=== PATIENT | female | born 1950 | race Caucasian/White ===

== ENCOUNTER 2018-12-06 10:02 | Inpatient (IN) ==
[2018-11-29 09:58] LABS: HEMATOCRIT 37.4 % (37.0-47.0); MCH 28.6 PG (27-31); MCHC 32.1 g/dL (33-37); MCV 89.3 FL (81-99); MPV 9.5 FL (7.4-10.4); RBC 4.19 XMIL (4.2-5.4); WBC 9.25 X1000 (4.8-10.8)
[2018-11-29 10:21] LABS: AGAP 8; BUN 12 mg/dL (8-22); CALCIUM 8.9 mg/dL (8.8-10.2); CHLORIDE 102 mmol/L (98-107); COSMO 280; CREATININE 0.9 mg/dL (0.5-0.9); ESTIMATED GFR > 60; GLUCOSE 142 mg/dL (70-104); POTASSIUM 4.1 mmol/L (3.5-5.1); SODIUM 139 mmol/L (136-145); TCO2 29 mmol/L (25-35)
[2018-12-06] MEDS ORDERED: LR 1,000 ML ONE ×2 (10:41→10:53)
[2018-12-06] MEDS ORDERED: MEFOXIN 2 GM/NS 2 GM/50 ML IVPB ONE (10:41)
[2018-12-06] MEDS ORDERED: VERSED ONE (10:45)
[2018-12-06] MEDS ORDERED: DIPRIVAN 1% ONE (10:45)
[2018-12-06] MEDS ORDERED: QUELICIN (DOSE) ONE (10:45)
[2018-12-06] MEDS ORDERED: ROBINUL ONE ×2 (10:45→12:03)
[2018-12-06] MEDS ORDERED: FENTANYL ONE ×2 (10:45→12:32)
[2018-12-06] MEDS ORDERED: XYLOCAINE-MPF 2% ONE (10:45)
[2018-12-06] MEDS ORDERED: MARCAINE 0.25% PF/EPI 1:200,000 ONE (10:53)
[2018-12-06] MEDS ORDERED: SODIUM CHLORIDE 0.9% ONE (10:53)
[2018-12-06] MEDS ORDERED: ZOFRAN ONE (12:03)
[2018-12-06] MEDS ORDERED: DECADRON ONE (12:03)
[2018-12-06] MEDS ORDERED: NEOSTIGMINE ONE (12:03)
[2018-12-06] MEDS ORDERED: ZEMURON ONE (12:03)
[2018-12-06] MEDS ORDERED: OFIRMEV 1000 MG/ISOTONIC SOLN 1,000 MG/100 ML BOTTLE ONE (13:30)
[2018-12-06] MEDS: DILAUDID ONE ×4 (14:15→18:04)
[2018-12-06 14:24] LABS: URINE SOURCE CATH
[2018-12-06 14:25] LABS: BILIRUBIN URINE NEGATIVE (NEGATIVE); BLOOD URINE NEGATIVE (NEGATIVE); COLOR STRAW; GLUCOSE URINE NEGATIVE (NEGATIVE); KETONE URINE NEGATIVE (NEGATIVE); LEUKOCYTES URINE NEGATIVE (NEGATIVE); NITRITE URINE NEGATIVE (NEGATIVE); PROTEIN URINE NEGATIVE (NEGATIVE); TURBIDITY URINE CLEAR (CLEAR); UROBILINOGEN URINE NORMAL (NORMAL)
[2018-12-06 14:27] LABS: UR EPITHELIAL CELLS <10 /HPF (<10); URINE BACTERIA NEGATIVE /HPF; URINE RBC <10 /HPF (<10); URINE WBC <10 /HPF (<10)
--- NOTE | 2018-12-06 14:44 | EKG Report ---
Test Performed on : 12/06/2018 2:24:54 PM Test Reason : EKG changes Blood Pressure : / mmHG Vent. Rate : 057 BPM Atrial Rate : 057 BPM P-R Int : 186 ms QRS Dur : 102 ms QT Int : 470 ms P-R-T Axes : 036 -34 005 degrees QTc Int : 457 ms Sinus bradycardia. Left axis deviation Minimal voltage criteria for LVH, may be normal variant Nonspecific ST and T wave abnormality Abnormal ECG When compared with ECG of 10-NOV-2018 05:11, (Unconfirmed) T wave amplitude has decreased in Inferior leads T wave inversion less evident in Lateral leads Confirmed by Shabbir Downey MD ([id number]) on 12/06/2018 5:03:47 PM
[2018-12-06] MEDS: APRESOLINE ONE ×3 (15:00→17:43)
[2018-12-06] MEDS ORDERED: TYLENOL PO PRN (15:02)
[2018-12-06] MEDS ORDERED: ZOFRAN IV PRN (15:02)
[2018-12-06] MEDS ORDERED: APRESOLINE IV PRN (15:13)
[2018-12-06] MEDS ORDERED: NS 1,000 ML ONE (15:15)
--- NOTE | 2018-12-06 15:46 | OPERATIVE NOTE ---
PROCEDURE DATE : 12/06/2018 PREOPERATIVE DIAGNOSIS: Cholelithiasis. POSTOPERATIVE DIAGNOSIS: Suppurative cholecystitis. PROCEDURE: Laparoscopic converted to open cholecystectomy. SURGEON: Matteo Galaviz MD. BONDING MACHINE OPERATOR: Vinnie Lewis MD. Dr. Lewis assisted with the entirety of the case. His presence was crucial for completion of the case. ANESTHESIA: General endotracheal. INTRAOPERATIVE FINDINGS: Purulence in the gallbladder. COMPLICATIONS: None at the time of this dictation. ESTIMATED BLOOD LOSS: 450 mL. SPECIMENS REMOVED: Gallbladder and culture from the gallbladder. DRAINS: 19 [place]. BRIEF HISTORY: A 68-year-old female presenting with right upper quadrant pain. Imaging suggested cholelithiasis but no cholecystitis. [place] she would benefit from cholecystectomy. The risks, benefits, and alternatives were discussed and documented in the chart. All questions answered. DESCRIPTION OF PROCEDURE: After informed consent was obtained, the patient was brought to the operative theater, transferred to the operating table in supine position. General endotracheal anesthesia was then performed without complication. A formal time-out was then performed confirming patient, date, procedure. All were in agreement. At that time, attention was given to the abdomen. An infraumbilical incision was made through which using Optiview technique, we inserted a 12 mm trocar connected insufflation. Pneumoperitoneum was achieved. Under direct visualization, we placed 1 more additional trocar in the subxiphoid region. We quickly realized that the anatomy was very difficulty, inflamed, and I could not quickly or easily identify the anatomy safely laparoscopically, therefore, made a right upper quadrant incision with a scalpel converting it to open, carried down through the fascia into the muscle. We entered into the abdomen this way. Found dense adhesions of connective tissues around the gallbladder. With a combination of electrocautery and blunt dissection, I was able to free up the gallbladder from the transverse colon. To facilitate to exposure, I aspirated the gallbladder. There was purulence, which we sent for culture. Using a combination of electrocautery and blunt dissection, we made a plane off the gallbladder fossa and did a top-down approach. It was very difficult to get this plane and we did into the liver in several spots but we stopped bleeding with electrocautery. We dissected all the way down very carefully and very meticulously using a combination of finger dissection and blunt dissection and electrocautery all the way down to what looked like the infundibulum. We did pull out a large stone from the gallbladder. Once we were able to get down to infundibulum, we dissected off Calot's node and dissected it free. At this point, it was very difficult to identify the cystic duct clearly, so I elected to go up on the infundibulum and used a TIA stapler with a thick load across it, fired across it with good results and then removed the gallbladder. We then saw what looked like the remnant of the cystic duct and placed several additional clips on it. We then irrigated out the abdomen copiously until the suctioned fluid was clear. We then tunneled a drain from the lateral aspect of the incision to the gallbladder fossa secured in place. We then closed the fascia in 2 layers starting from either end with good approximation. We then irrigated out the incisions and closed all skin incisions with ramos. The patient tolerated the procedure well. She did have some EKG changes so we elected to put her in the CICU and watch her and get the Hospitalist to see her. An EKG is pending. cc: Matteo Galaviz MD
[2018-12-06] MEDS ORDERED: MORPHINE IV PRN (16:00)
--- NOTE | 2018-12-06 16:19 | CARDIOLOGY CONSULTATION ---
DATE: 12/06/2018 HISTORY OF PRESENT ILLNESS: Postop patient had accelerated hypertension and bradycardia. She was given 5 mg hydralazine postoperatively. Patient is in the CICU. She does not complain of any chest pain. She complains of discomfort in her abdomen following her recent just completed surgery. Patient was admitted for suppurative cholecystitis and underwent cholecystectomy. The patient's son was present. Patient is not on any home medications. She was told to have had diet-controlled diabetes, history of hypertension which has been under control. She is not taking any medications. No previous cardiac history. REVIEW OF SYSTEMS: A 14 point review of system was done.Cardiovascular System: Patient does not complain of any chest pain nor palpitations. Genitourinary System: There is no dysuria or hematuria. Respiratory System: No history of cough, expectoration, hemoptysis. No history of fevers or chills. PHYSICAL EXAMINATION: Vital Signs: Blood pressure at the time of my examination was 146/80, heart rate was 78. Cardiovascular System: First and second heart sounds were heard. There was a systolic murmur. Respiratory System: Normal air entry. There is no crepitations or rhonchi. Abdomen: The patient underwent a cholecystectomy. Extremities: Examination of extremities reveals no pedal edema. HEENT: Atraumatic, normocephalic. Pupils reacting to light. DIAGNOSTIC STUDIES: Electrocardiogram revealed normal sinus rhythm. There was no ST-T changes to suggest ischemia. ASSESSMENT: Ms. Angelica Licona is a 68-year-old lady who has a history of having had diabetes, currently diet-controlled, history of hypertension in the past, not on any medications, but her blood pressures have been stable, was noted to have elevated blood pressures postoperatively and bradycardia. Currently she is stable. PLAN: 1. She is NPO. We will give her hydralazine 10 mg IV q.6 p.r.n. should her blood pressure be greater than 160. 2. Given her soft systolic murmur, we will get an echocardiogram to assess cardiac and valvular function. We can transition her to p.o. medications for hypertension should her blood pressure be elevated. Thank you for the consult. We will follow the hospital course. cc: MD Matteo Thomson MD
--- NOTE | 2018-12-06 16:44 | Diag Imaging Result Doc PS360 ---
EXAM: CHEST-PORTABLE 12/06/2018 HISTORY: dyspnea TECHNIQUE: AP upright portable at 1633 COMMENT: There is platelike opacity in the right middle lobe and left lower lobe. There are no previous studies. The heart size is at the upper limits of normal. IMPRESSION: Right middle lobe and left lower lobe subsegmental atelectasis. Electronically signed by Jacobo Fernández 12/06/2018 4:41 PM
[2018-12-06 16:55] LABS: BASO# 0.02 X1000 (0.0-0.2); BASO% 0.1 % (0.0-0.8); EOS# 0.03 X1000 (0.0-0.7); EOS% 0.2 % (0.0-10.0); HEMATOCRIT 36.3 % (37.0-47.0); HEMOGLOBIN 11.6 g/dL (12.0-16.0); IMM GRAN# 0.04 X1000 (0.0-0.04); IMM GRAN% 0.2 % (0.0-0.5); LYMPH# 0.99 X1000 (1.2-3.4); LYMPH% 6.2 % (20.5-51.1); MCH 27.9 PG (27-31); MCV 87.3 FL (81-99); MONO# 0.12 X1000 (0.11-0.59); MONO% 0.7 % (1.7-9.3); NEUT# 14.81 X1000 (1.4-6.5); NEUT% 92.6 % (42.2-75.2); PLT 274 X1000 (130-400); RBC 4.16 XMIL (4.2-5.4); RDW 13.9 % (11.5-14.5); WBC 16.01 X1000 (4.8-10.8)
[2018-12-06 17:20] LABS: AGAP 12; ALB/GLOB RATIO 1.1; ALBUMIN 3.7 g/dL (3.5-5.0); ALKALINE PHOSPHATASE 91 U/L (32-104); BUN 9 mg/dL (8-22); CALCIUM 8.5 mg/dL (8.8-10.2); CHLORIDE 101 mmol/L (98-107); COSMO 280; CREATININE 0.8 mg/dL (0.5-0.9); ESTIMATED GFR > 60; GLUCOSE 203 mg/dL (70-104); GOT 65 U/L (10-30); GPT 33 U/L (10-36); POTASSIUM 3.7 mmol/L (3.5-5.1); SODIUM 138 mmol/L (136-145); TCO2 25 mmol/L (25-35); TOTAL BILIRUBIN 0.71 mg/dL (0.20-1.00); TOTAL PROTEIN 7.1 g/dL (6.3-8.3)
[2018-12-06] MEDS: NS IV SCH ×2 (17:28→23:52)
[2018-12-06] MEDS: MEFOXIN IV SCH ×2 (17:28→23:52)
[2018-12-06] MEDS: NS 1,000 ML IV SCH (17:28)
[2018-12-06] MEDS: NORCO-10 PO PRN ×2 (17:34→22:01)
[2018-12-06 17:35] LABS: EOS 1 % (1-10); LYMPHS 3 % (21-51); SEGS 96 % (42-75)
[2018-12-06 17:39] LABS: CK INDEX 1.7 (0.0-2.5); CK-MB 3.07 ng/mL (0.0-5.0)
--- NOTE | 2018-12-06 21:28 | HISTORY AND PHYSICAL ---
CONSULTING PHYSICIAN: Dr. Jeremiah Chong. REASON FOR CONSULT: Bradycardia, hypertension, and EKG changes postop open cholecystectomy. HISTORY OF PRESENT ILLNESS: This is a 68-year-old female who is status post open cholecystectomy, who was noted to have EKG changes during surgery, prompting our consultation. She is noted to have T-wave inversions in V4 and V5 with bradycardia, and she is hypertensive with pressures in the 200 to 230 range systolic. PAST MEDICAL HISTORY: She denies. PAST SURGICAL HISTORY: 1. Appendectomy. 2. Tonsillectomy and adenoidectomy. ALLERGIES: Penicillin. HOME MEDICATIONS: None. REVIEW OF SYSTEMS: Unable to obtain with the patient as she is postop. She is sedated, lying in Recovery. PHYSICAL EXAMINATION: GENERAL: This is a 68-year-old female who is lying in the stretcher in recovery room in no distress. VITAL SIGNS: Blood pressure is 226/67 with a heart rate of 56, respirations are 18, temperature is 97.2 degrees, with O2 saturations 100% on 2 L nasal cannula. EYES: Pupils are equal, round, react to light. EOMs are intact. Sclerae are anicteric. HEAD: Head is normocephalic, atraumatic. ENT: Mucous membranes are dry. NECK: Supple. Trachea midline. CARDIOVASCULAR: Regular rate and rhythm. She is bradycardic. S1 and S2 appreciated. No murmur. PULMONARY: Breath sounds are clear with no increased work of breathing noted. Chest rises and falls symmetrically with respiration. GASTROINTESTINAL: Abdomen is soft, nondistended, with bowel sounds in all 4 quadrants. She does have a dressing to her right upper quadrant that is dry and intact. SEMAJ is noted with bloody drainage. GENITOURINARY: [place] is patent to bedside bag with clear yellow urine draining. NEUROLOGIC: She is sedated. She does arouse to her name being called. She does follow simple gross commands. ASSESSMENT AND PLAN: 1. Bradycardia. 2. Hypertension. 3. Status post open cholecystectomy. 4. Electrocardiogram changes. The patient is noted to have T-wave inversions. 5. Deep venous thrombosis prophylaxis. Sequential compression devices are in place. 6. Gastrointestinal prophylaxis. Will give Prilosec. PLAN: 1. The patient will be admitted to CICU. Postop orders will be per Dr. Daniels [facility]. 2. We will continue giving supplemental oxygen and incentive spirometer every 4 hours. 3. She will be placed on telemetry. 4. We will consult Dr. English from Cardiology. 5. We will check a CBC, a CMP, a cardiac profile, and a troponin stat, then every 6 hours. 6. Repeat EKG in the morning. 7. We will obtain echocardiogram. 8. Use hydralazine 10 mg IV q.4 hours p.r.n. for systolic blood pressure greater than 180. 9. Will use Zofran for nausea. 10. Continue with saline at 75 for hydration. Thank you for allowing us to participate in this patient's care. Further treatments pending hospital course Discussed with Dr. Pleitez. Dictated by RANDI Soto for Blayne Green MD cc: RANDI Soto MD [facility], MD [facility] HOSPITALRaegan
[2018-12-06 22:53] LABS: CK INDEX 1.4 (0.0-2.5); CK-MB 3.04 ng/mL (0.0-5.0)
[2018-12-07] MEDS ORDERED: BENADRYL IV ONE ×3 (02:25→13:25)
[2018-12-07] MEDS ORDERED: SOLU-MEDROL IV ONE (02:51)
[2018-12-07] MEDS ORDERED: PEPCID IV ONE (02:51)
[2018-12-07] MEDS ORDERED: SODIUM CHLORIDE 0.9% INJ ONE (02:51)
[2018-12-07] MEDS: NS 1,000 ML IV SCH ×2 (03:09→05:52)
[2018-12-07 04:14] LABS: BASO# 0.01 X1000 (0.0-0.2); BASO% 0.1 % (0.0-0.8); EOS# 0.04 X1000 (0.0-0.7); EOS% 0.2 % (0.0-10.0); HEMOGLOBIN 10.9 g/dL (12.0-16.0); IMM GRAN# 0.05 X1000 (0.0-0.04); IMM GRAN% 0.3 % (0.0-0.5); LYMPH# 1.49 X1000 (1.2-3.4); LYMPH% 8.8 % (20.5-51.1); MCH 28.2 PG (27-31); MCHC 32.1 g/dL (33-37); MCV 87.9 FL (81-99); MONO# 0.71 X1000 (0.11-0.59); MONO% 4.2 % (1.7-9.3); MPV 9.8 FL (7.4-10.4); NEUT# 14.63 X1000 (1.4-6.5); NEUT% 86.4 % (42.2-75.2); PLT 284 X1000 (130-400); RBC 3.87 XMIL (4.2-5.4); RDW 13.9 % (11.5-14.5); WBC 16.93 X1000 (4.8-10.8)
[2018-12-07] MEDS ORDERED: HEPARIN SUBQ SCH (05:00)
[2018-12-07 05:06] LABS: AGAP 10; ALB/GLOB RATIO 1.6; ALBUMIN 3.6 g/dL (3.5-5.0); ALKALINE PHOSPHATASE 81 U/L (32-104); BUN 9 mg/dL (8-22); CALCIUM 8.2 mg/dL (8.8-10.2); CHLORIDE 102 mmol/L (98-107); COSMO 276; CREATININE 0.9 mg/dL (0.5-0.9); ESTIMATED GFR > 60; GLUCOSE 164 mg/dL (70-104); GOT 41 U/L (10-30); GPT 25 U/L (10-36); POTASSIUM 4.7 mmol/L (3.5-5.1); SODIUM 137 mmol/L (136-145); TCO2 25 mmol/L (25-35); TOTAL PROTEIN 5.9 g/dL (6.3-8.3)
[2018-12-07 05:24] LABS: CK INDEX 1.1 (0.0-2.5); CK-MB 2.96 ng/mL (0.0-5.0)
[2018-12-07] MEDS ORDERED: ZOSYN 3.375 GM in NS 50 ML IV SCH (05:45)
[2018-12-07] MEDS ORDERED: SOLU-MEDROL IV PRN (05:46)
[2018-12-07] MEDS ORDERED: BENADRYL IV PRN ×2 (05:48→08:38)
[2018-12-07] MEDS: PRILOSEC PO SCH (06:10)
[2018-12-07] MEDS: ULTRAM PO PRN (06:28)
--- NOTE | 2018-12-07 07:39 | EKG Report ---
Test Performed on : 12/07/2018 07:09:38 AM Test Reason : chest pain Blood Pressure : / mmHG Vent. Rate : 103 BPM Atrial Rate : 103 BPM P-R Int : 164 ms QRS Dur : 098 ms QT Int : 368 ms P-R-T Axes : 043 -56 055 degrees QTc Int : 482 ms Sinus tachycardia. Left anterior fascicular block Minimal voltage criteria for LVH, may be normal variant Nonspecific ST abnormality Lateral leads Abnormal ECG When compared with ECG of 06-DEC-2018 14:24, Vent. rate has increased BY 46 BPM Non-specific change in ST segment in Lateral leads T wave amplitude has increased in Inferior leads T wave inversion no longer evident in Lateral leads Confirmed by Shabbir Downey MD ([id number]) on 12/10/2018 11:30:33 AM
[2018-12-07] MEDS ORDERED: PEPCID PO SCH (09:00)
[2018-12-07] MEDS: FLAGYL 500 MG/NS 500 MG/100 ML IVPB IV SCH ×2 (09:45→16:40)
[2018-12-07] MEDS: D5 1/2 NS 1,000 ML IV SCH (09:45)
[2018-12-07] MEDS: LEVAQUIN 750 MG/D5W 750 MG/150 ML IVPB IV SCH (09:46)
[2018-12-07] MEDS: MIRALAX PO SCH (09:46)
[2018-12-07] MEDS: HEPARIN SUBQ SCH ×3 (09:46→20:10)
--- NOTE | 2018-12-07 09:51 | ECHO REPORT ---
ORDER DATE: 12/06/2018 INTERPRETING PHYSICIAN: Jim Gasca MD. REQUESTING PHYSICIAN: Hospitalist. CLINICAL INDICATIONS: Bradycardia, hypertension. M-MODE MEASUREMENTS: Left ventricle end diastole: 5.6 cm. Left ventricle end systole: 2.7 cm. Posterior wall: 1.2 cm. Interventricular septum: 1.3 cm. Left atrium: 2.5 cm. Aortic diameter: 3.0 cm. SUMMARY OF 2-DIMENSIONAL IMAGIN. Left ventricular function is normal. Ejection fraction 66%. No wall motion abnormality is noted. Mild degree of concentric LVH. 2. The aortic valve has 3 cusps, they open normally. Color flow mapping unremarkable. 3. The pulmonic valve looks normal. Color flow mapping unremarkable. 4. The tricuspid valve shows mild degree of regurgitation. 5. Pulmonary pressure estimated at 40-45 mmHg. 6. The mitral valve opens normally. Color flow mapping indicates mild degree of regurgitation. 7. The pulse wave Doppler of mitral inflow shows mild reversal of the E/A ratio, ratio of 0.7. 8. Tissue Doppler of septal and lateral mitral annulus averages 4 cm. 9. There is impaired left ventricular relaxation. 10.There is no pericardial effusion, no mass, and no thrombus. 11.Right-sided chambers are unremarkable. 12.The left atrium is probably within normal range. Clinical correlation is recommended. cc: MD Arabella Seaman CRNP [facility] F[facility], MD
[2018-12-07 10:17] LABS: CK INDEX 1.1 (0.0-2.5); CK-MB 3.53 ng/mL (0.0-5.0)
--- NOTE | 2018-12-07 11:26 | PROGRESS NOTE ---
DATE: 12/07/2018 SUBJECTIVE: It looks like this patient had an allergic reaction to medication during the night. At this moment, she is still itching everywhere. As per the patient, her tongue was swollen, but now seems to be better. She is not having problem breathing. She has no wheezing. She is tolerating p.o., so I will stop the normal saline, and I will put her on D5 half NS. She seems to be tolerating p.o. She is complaining of belly pain. OBJECTIVE: Vital Signs: Temperature 98.4 degrees, pulse 100, respiratory rate 19, blood pressure 167/79, and oxygen saturation 98 percent on 2 L of nasal cannula. HEENT: Head normocephalic. No trauma. PERRLA. Neck: Supple. No JVD. No masses. Central trachea. Chest: Clear to auscultation. No wheezing. No rales. Cardiovascular: Regular rhythm and rate. Systolic murmur. Abdomen: Soft. Generalized tenderness to palpation mostly at the level of the perioperative area. She has a drain on the right side, covered with a dressing. I do not see any signs of bleeding. Extremities: No edema. No clubbing. No cyanosis. Neurological: The patient is completely alert. She is oriented x3. No focal deficits. LABORATORY: WBC 16.9, hemoglobin 10.9, hematocrit 34, and platelets 284,000. Sodium 137, potassium 4.7, chloride 102, bicarbonate 25, BUN 9, creatinine 0.9, glucose 164, calcium 8.2, AST 41, ALT 21, alkaline phosphatase 881, and CK 261. Troponin negative x3. TSH 0.96. ASSESSMENT AND PLAN: 1. Severe hypertension and mild bradycardia during the cholecystectomy. She seems to be better. I will stop the normal saline and put her on D5 half NS, She is feeling better. EKG yesterday probably showed some T-wave inversions in V5 - V6 today. Today, the EKG is not showing those changes and she is no longer bradycardic. She is slightly hypertensive, so like I said I will stop the fluids and I will monitor. Probably, she needs to be on blood pressure medication in the future. 2. Status post laparoscopic converted to open cholecystectomy, intraoperative findings with purulence in the gallbladder. She has a drain that is showing some sero/bloody secretion. She is complaining of pain. She does have some bowel sounds, and it looks like she is tolerating p.o. 3. Allergic reaction likely to a medication, antibiotic, that has been stopped and switched to levofloxacin, and metronidazole. We will continue with same management. She is still itching so I will give her a couple doses of methyl prednisolone, and I will give her a dose of Benadryl and Pepcid as well. 4. Hyperglycemia. Actually, we have also a glucose reading from 11/10/2017, and it was around 240. She does not have any medical history of diabetes, but I will get a hemoglobin A1c to rule it out. Likely she has diabetes. 5. Deep vein thrombosis prophylaxis with SCD's and GI prophylaxis. She has been getting Prilosec, but I also added Pepcid for her allergic reaction. Probably, it is going to be just for 1 day or 2. cc: MD Matteo Nguyen MD
--- NOTE | 2018-12-07 12:34 | GENERAL SURGERY PROGRESS NOTE ---
DATE: 12/07/2018 SUBJECTIVE: Patient seemed to have her allergic reaction last night and early this morning. Nurses cannot tell if it was from the [place] or the Mefoxin. The timing is somewhat close to both. She was given Solu-Medrol and Benadryl and has seemed to improve. She is otherwise doing okay. She has been seen by the hospitalist and Cardiology. OBJECTIVE: Vital Signs: Patient is currently afebrile. Her vital signs are stable. General: No acute distress. Alert, interactive. Cardiovascular: Regular rate and rhythm. Lungs: Grossly clear. Abdomen: Soft. Appropriately tender. SEMAJ drain in place with serosanguineous output. ASSESSMENT AND PLAN: A 68-year-old female status post open cholecystectomy. 1. Postoperative state. At this time, continue supportive care. Continue current management. We will switch her over to tramadol, flagyl, levaquin, and give her MiraLAX. 2. Cardiac issues. At this time, we will defer to Cardiology. I appreciate the smelter operator's and the hospitalist's help. cc: Matteo Galaviz MD [facility]
[2018-12-07] MEDS: SOLU-MEDROL IV SCH ×2 (13:39→20:10)
[2018-12-07] MEDS: PEPCID PO SCH (13:40)
[2018-12-07] MEDS ORDERED: SOLU-MEDROL IV SCH (18:00)
[2018-12-07] MEDS: BENADRYL IV PRN (20:09)
[2018-12-08] MEDS: SOLU-MEDROL IV SCH (01:38)
[2018-12-08] MEDS: FLAGYL 500 MG/NS 500 MG/100 ML IVPB IV SCH ×4 (01:38→23:43)
[2018-12-08] MEDS: BENADRYL IV PRN (01:38)
[2018-12-08] MEDS: PEPCID PO SCH ×2 (01:38→17:02)
[2018-12-08] MEDS: D5 1/2 NS 1,000 ML IV SCH (06:03)
[2018-12-08] MEDS: PRILOSEC PO SCH (06:03)
[2018-12-08 06:06] LABS: HEMATOCRIT 33.1 % (37.0-47.0); HEMOGLOBIN 10.5 g/dL (12.0-16.0); IMM GRAN# 0.03 X1000 (0.0-0.04); IMM GRAN% 0.2 % (0.0-0.5); LYMPH# 1.57 X1000 (1.2-3.4); MCH 27.9 PG (27-31); MCHC 31.7 g/dL (33-37); MONO# 0.56 X1000 (0.11-0.59); MONO% 3.2 % (1.7-9.3); MPV 10.4 FL (7.4-10.4); NEUT% 87.6 % (42.2-75.2); PLT 324 X1000 (130-400); RBC 3.76 XMIL (4.2-5.4); RDW 14.1 % (11.5-14.5); WBC 17.46 X1000 (4.8-10.8)
[2018-12-08] MEDS: HEPARIN SUBQ SCH ×3 (06:06→21:28)
[2018-12-08 06:37] LABS: HEMOGLOBIN A1C 7.4 % (4.8-6.0)
[2018-12-08 06:46] LABS: ALB/GLOB RATIO 1.3; ALBUMIN 3.4 g/dL (3.5-5.0); CALCIUM 8.8 mg/dL (8.8-10.2); CREATININE 1.3 mg/dL (0.5-0.9); POTASSIUM 4.1 mmol/L (3.5-5.1); TOTAL BILIRUBIN 0.6 mg/dL (0.20-1.00); TOTAL PROTEIN 6.1 g/dL (6.3-8.3)
[2018-12-08] MEDS ORDERED: SOLU-MEDROL IV PRN (07:53)
[2018-12-08] MEDS: NS 1,000 ML IV SCH ×4 (09:57→23:45)
[2018-12-08] MEDS: LEVAQUIN 750 MG/D5W 750 MG/150 ML IVPB IV SCH (09:57)
[2018-12-08] MEDS: MIRALAX PO SCH (09:57)
--- NOTE | 2018-12-08 10:49 | PROGRESS NOTE ---
DATE: 12/08/2018 SUBJECTIVE: This patient is feeling better. She is complaining of abdominal pain, I do not see any skin rash and mild itchiness. I will go ahead and stop the steroids, I will continue with Pepcid and Benadryl as needed. I will increase the rate of the IV fluids due to an increase of the creatinine. As per the patient, she is having good urine output. The Moreno catheter has been removed. OBJECTIVE: Vital Signs: Temperature 98.3 degrees, pulse 85, respiratory rate 21, blood pressure 157/82, and oxygen saturation 99 on 2 L of nasal cannula. HEENT: Head normocephalic. No trauma. PERRLA. Neck: Supple. No JVD. No masses. Central trachea. Chest: Clear to auscultation. No wheezing. No rales. Cardiovascular: Regular rhythm and rate. Systolic murmur. Abdomen: Soft. Generalized tenderness to palpation mostly at the level of the perioperative area. She has a drain on the right side covered with a dressing. I do not see any signs of bleeding. Extremities: No edema. No clubbing. No cyanosis. Neurological: She is alert. She is oriented x3. No focal deficits. LABORATORY: WBC 17.4, hemoglobin 10.5, hematocrit 33.1, and platelets 324,000. Sodium 137, potassium 4.1, chloride 100, bicarbonate 24, BUN 21, creatinine 1.3, glucose 226. Hemoglobin A1c 7.4, calcium 8.8, AST 18, ALT 17, and alkaline phosphatase 67. ASSESSMENT AND PLAN: 1. Severe hypertension with mild bradycardia during cholecystectomy. Blood pressure is still slightly elevated but better compared with the initial blood pressure. It has been mostly in the 150s. Cardiology Department on board. We will continue to monitor. 2. Status post laparoscopic converted to open cholecystectomy, postoperative finding with purulence in the gallbladder. She has a drain that is showing some sero/bloody secretion. She is still complaining of some pain, but she is tolerating p.o. and she is passing gas. Positive bowel sounds. 3. Allergic reaction likely to a medication, antibiotics, that has been stopped and switched to levofloxacin and metronidazole. The itchiness resolved. Today it is just mild. I will stop the steroids. I will continue only with Benadryl as needed and Pepcid. Her WBC is still elevated probably because of the steroids as well. 4. New onset diabetes. As per the patient, she had prediabetes a few years ago. Now, I rechecked and her hemoglobin A1c was elevated at 7.4. I had a discussion with the patient about these results, and she seems to understand. 5. Hypertension. As per the patient, she had hypertension before that she stopped taking treatment because the blood pressure got better as per #1. 6. Acute kidney injury. This patient's BUN and creatinine increased even though she was getting fluids, and she was drinking water and urinating good. As per the patient, she has been urinating multiple times a day. I will give her more IV fluids, and I will monitor this closely. cc: Blayne Green MD
[2018-12-08] MEDS: HUMULIN R SUBQ SCH ×3 (12:10→21:30)
--- NOTE | 2018-12-08 15:40 | GENERAL SURGERY PROGRESS NOTE ---
DATE: 12/08/2018 SUBJECTIVE: The patient seems to be doing okay. Her pain seems to be controlled. She has not been taking any pain medicine. She had some tachycardia when she got up out of bed to go to the bathroom, but otherwise feels okay from a surgical point of view, she is doing okay. Her SEMAJ drain does not seem to suggest a bile leak. ASSESSMENT/PLAN: We will defer discharge to the hospitalist and Cardiology as far as our heart is doing, but from just from a purely surgical point of view, she could probably be discharged. cc: MD Blayne Caballero MD
[2018-12-09] MEDS: FLAGYL 500 MG/NS 500 MG/100 ML IVPB IV SCH ×2 (00:27→08:33)
[2018-12-09] MEDS: ULTRAM PO PRN (02:35)
[2018-12-09] MEDS: PEPCID PO SCH (04:49)
[2018-12-09] MEDS: HEPARIN SUBQ SCH ×2 (04:49→13:04)
[2018-12-09 05:57] LABS: HEMATOCRIT 27.6 % (37.0-47.0); HEMOGLOBIN 8.8 g/dL (12.0-16.0); IMM GRAN# 0.05 X1000 (0.0-0.04); IMM GRAN% 0.3 % (0.0-0.5); LYMPH# 2.54 X1000 (1.2-3.4); LYMPH% 17.6 % (20.5-51.1); MCH 27.9 PG (27-31); MCHC 31.9 g/dL (33-37); MCV 87.6 FL (81-99); MONO# 1.09 X1000 (0.11-0.59); MONO% 7.6 % (1.7-9.3); MPV 10.3 FL (7.4-10.4); NEUT# 10.73 X1000 (1.4-6.5); NEUT% 74.5 % (42.2-75.2); PLT 272 X1000 (130-400); RBC 3.15 XMIL (4.2-5.4); WBC 14.41 X1000 (4.8-10.8)
[2018-12-09 06:17] LABS: ALB/GLOB RATIO 1.1; ALBUMIN 3.2 g/dL (3.5-5.0); CALCIUM 8.6 mg/dL (8.8-10.2); CREATININE 1.1 mg/dL (0.5-0.9); POTASSIUM 4.1 mmol/L (3.5-5.1); TOTAL BILIRUBIN 0.45 mg/dL (0.20-1.00); TOTAL PROTEIN 6.2 g/dL (6.3-8.3)
[2018-12-09] MEDS: HUMULIN R SUBQ SCH ×2 (06:24→11:53)
[2018-12-09] MEDS ORDERED: NS 1,000 ML IV SCH (06:54)
[2018-12-09] MEDS: LEVAQUIN 750 MG/D5W 750 MG/150 ML IVPB IV SCH (08:33)
[2018-12-09] MEDS: MIRALAX PO SCH (08:33)
[2018-12-09] MEDS ORDERED: NORVASC PO SCH (09:00)
[2018-12-09 12:32] VITALS: BP 177/82
--- NOTE | 2018-12-09 14:12 | GENERAL SURGERY PROGRESS NOTE ---
DATE: 12/09/2018 SUBJECTIVE: Doing very well, is tolerating a diet. She is having bowel function. Pain is well- controlled. SEMAJ drain serosanguineous. No further cardiac issues overnight. White count 7.14, hematocrit is 27. Creatinine is 1.1, glucose 149 to 110. LFTs are normal. ASSESSMENT AND PLAN: This is a 68-year-old female status post open cholecystectomy. She had some electrocardiogram changes but has done well postoperatively. From a surgical standpoint, I think she may be ready to go. I will talk to the Hospitalist. I do not think she needs further antibiotics. From a cardiac standpoint if they are okay with her going home, she can follow up with Dr. Galaviz Tuesday or Tuesday for drain removal. I have given her written and verbal instructions in drain care. cc: MD Blayne Shah MD
--- NOTE | 2018-12-10 10:20 | DISCHARGE SUMMARY ---
ADMISSION DATE: 12/06/2018 DISCHARGE DATE: 12/09/2018 DISCHARGE DIAGNOSES: 1. Severe hypertension with mild bradycardia during cholecystectomy. 2. Status post laparoscopic converted to open cholecystectomy with a postoperative finding with purulence in the gallbladder. 3. Allergic reaction likely to a medication, antibiotics, penicillin. 4. New onset diabetes. 5. Hypertension. 6. Acute kidney injury, better. PROCEDURES PERFORMED: Operative note on 12/06/2018; procedure, laparoscopic converted to open cholecystectomy. Findings: Purulence in the gallbladder. Abdominal culture positive for E. coli, pansensitive. Electrocardiogram dated 12/06/2018. Impression: Left axis deviation, nonspecific ST and T-wave abnormality, especially V5, V6. Echocardiogram dated 12/06/2018. Impression: Ejection fraction 66%. No wall motion abnormality. Mild degree of concentric LVH. Pulmonary pressure estimated 40-45 mmHg. Mild degree of regurgitation in the mitral valve. There is some impairment of the left ventricular relaxation. Chest x-ray dated 12/06/2018. Impression: Right middle lobe and left lower lobe subsegmental atelectasis. HOSPITAL COURSE: A 68-year-old female with no medical history, who is status post open cholecystectomy, was noted to have some EKG changes, hypertension, and mild bradycardia during surgery. They were performing a laparoscopic cholecystectomy converted to open cholecystectomy and they found some purulence in the gallbladder. She is noted to have some questionable T-wave inversions between V4 and V6 with bradycardia, and with a systolic blood pressure ranging between 200 to 230. She received treatment with hydralazine initially. Then Cardiology department was consulted. Given her systolic murmur that was found, we had an echocardiogram done to evaluate valvular function. The patient was placed on IV fluids and she started tolerating her diet. Her creatinine increased a little bit even though she was getting fluids and she was eating. The amount of fluid was increased as well. Today, the BUN and creatinine are better and she is not having any changes or problem with the urine. Because of her hyperglycemia, I did a hemoglobin A1c and the result is elevated at 7.4, so I explained in detail to the patient that she needs to see her primary care doctor and talk about this. She does have diabetes. Initially, I recommended a diet but probably, she needs to be placed on treatment by mouth in the future. Also, I talked to her about MIMI inhibitors and ARBs that she needs to be on in the near future. At this moment, I am not putting her on ARBs or MIMI inhibitors because of her recent acute kidney injury. For her blood pressure, she has been placed on amlodipine and seems to be doing a little bit better but she needs to continue and follow up with her doctor as an outpatient. Also, she had an allergic reaction during this hospitalization and I believe it was because of an antibiotic reaction. This has been changed to levofloxacin and Flagyl, and she was getting better. She received some steroids and also she received some Benadryl and Pepcid. She seems to be doing much better today. She had a bowel movement. She is passing gas and she is tolerating p.o. Kidney function is better now. This is why we have decided to discharge this patient home and she needs to follow up with her primary care doctor and Dr. Galaviz next week. PHYSICAL EXAMINATION: Vital Signs: Temperature 97.6 degrees, pulse 78, respiratory rate 17, blood pressure 177/82, oxygen saturation 99 on room air. HEENT: Head normocephalic. No trauma. PERRLA. Neck: Supple. No JVD. No masses. Central trachea. Chest: Clear to auscultation. No wheezing. No rales. Abdomen: Soft. Generalized tenderness to palpation, mostly at the level of the perioperative area. She has a drain on the right side that is covered with a dressing. I do not see any signs of bleeding. Extremities: No edema, no clubbing, no cyanosis. Neurological Examination: The patient is alert. She is oriented. No focal deficits. LABORATORY: WBC 14.4, hemoglobin 8.8, hematocrit 27.6, and platelets 272,000. Sodium 139, potassium 4.1, chloride 106, bicarbonate 24, BUN 24, creatinine 1.1, glucose 149, calcium 8.6, albumin 3.3. DISCHARGE MEDICATIONS: Amlodipine 5 mg p.o. daily, famotidine 20 mg p.o. daily, levofloxacin 750 mg p.o. daily, Flagyl 500 mg p.o. t.i.d., MiraLAX 17 g p.o. daily, tramadol 50 mg p.o. q.6 hours as needed. She will continue with the antibiotics to complete 10 days of treatment. FOLLOWUP: With Dr. Galaviz next week. Probably, they will remove the drain at that time. Time discharging this patient, 35 minutes. cc: Blayne Green MD
== END 2018-12-09 13:44 | disposition home or self-care (01) | DRG 982 ==
LOC: OR 10:02 → 3S 10:02 → OBSVTOIN 12:42 → 3S 19:38
PROVIDERS: ADMIT Internal Medicine; ATTEND Surgery
CPT/HCPCS: 71010; 71045; 80048; 80053; 81001; 82550; 82553; 82948; 83036; 84443; 84484; 85025; 85027; 86850; 86900; 86901; 87070; 87075; 87077; 87186; 87205; 88304; 93005; 93010; 93306; 94760; 94761; 94799; A9270; J0131; J0330; J0360; J0694; J1100; J1170; J1200; J1644; J1956; J2250; J2405; J2920; J2930; J3010; J7030; J7120; S0028; S0030; XXXXX

== ENCOUNTER 2018-12-12 07:54 | Inpatient (IN) ==
[2018-12-12] MEDS ORDERED: NS 1,000 ML IV ONE (08:18)
[2018-12-12] MEDS ORDERED: ZOFRAN IV ONE (08:18)
[2018-12-12 08:31] LABS: BASO# 0.05 X1000 (0.0-0.2); BASO% 0.3 % (0.0-0.8); EOS# 0.17 X1000 (0.0-0.7); EOS% 0.9 % (0.0-10.0); HEMATOCRIT 35.4 % (37.0-47.0); HEMOGLOBIN 12.1 g/dL (12.0-16.0); IMM GRAN# 0.44 X1000 (0.0-0.04); IMM GRAN% 2.5 % (0.0-0.5); LYMPH# 2.45 X1000 (1.2-3.4); LYMPH% 13.7 % (20.5-51.1); MCH 28.1 PG (27-31); MCHC 34.2 g/dL (33-37); MCV 82.3 FL (81-99); MONO# 1.07 X1000 (0.11-0.59); MPV 9.7 FL (7.4-10.4); NEUT# 13.75 X1000 (1.4-6.5); NEUT% 76.6 % (42.2-75.2); PLT 433 X1000 (130-400); RDW 13.6 % (11.5-14.5); WBC 17.93 X1000 (4.8-10.8)
--- NOTE | 2018-12-12 08:32 | Diag Imaging Result Doc PS360 ---
EXAM: CHEST-PORTABLE 12/12/2018 HISTORY: syncope TECHNIQUE: AP portable upright at 0824 COMMENT: The aorta is tortuous. The atelectasis seen in both lung bases on 12/06/2018 has resolved. There are no new abnormalities. IMPRESSION: No evidence of acute disease. Electronically signed by Jacobo Fernández 12/12/2018 8:30 AM
[2018-12-12 08:42] LABS: INR 1.03; PROTIME 14.4 Seconds (11.0-16.0)
[2018-12-12 08:43] LABS: PTT 23.2 Seconds (22.3-41.8)
[2018-12-12 08:44] LABS: URINE SOURCE CLEAN CATCH
--- NOTE | 2018-12-12 08:46 | PROVIDER DOCUMENTATION ---
HPI-Syncope/Dizziness - General Chief Complaint: Syncope Stated Complaint: PASSED OUT LAST NIGHT,NAUSEA,LIGHTHEADED Time Seen by Provider: 12/12/18 08:05 Allergies/Adverse Reactions: Patient Allergies Allergy/AdvReac Type Severity Reaction Status Date / Time Penicillins AdvReac RASH Verified 11/29/18 09:27 Home Medications: Home Medication List Medication Instructions Recorded Confirmed Last Taken Type Amlodipine [Norvasc] 5 mg PO DAILY #30 tab 12/09/18 12/12/18 Unknown Rx Famotidine [Pepcid] 20 mg PO DAILY #30 tab 12/09/18 12/12/18 Unknown Rx Levofloxacin [Levaquin] 750 mg PO DAILY #8 tab 12/09/18 12/12/18 Unknown Rx Metronidazole [Flagyl] 500 mg PO TID #24 tab 12/09/18 12/12/18 Unknown Rx Tramadol [Ultram] 50 mg PO Q6H PRN PRN #20 tab 12/09/18 12/12/18 Unknown Rx - History of Present Illness-Syncope/Dizzy Nature of Presenting Problem: Patient is a little over 1 week post-op from open cholecystectomy which required intra-op t-tube placement, saw her surgeon, Dr. Galaviz yesterday, who pulled her drain tube. Last night felt light headed, shaking chills, nausea, and actually passed out briefly x 1. This am she is weak, light headed, nauseas and shaky. She did eat a small amount of eggs this am. Never felt this way before. States was diagnosed during the hospitalization as having HTN and kidney disease. Patient is also a diabetic. If witnessed syncope, by whom?: daughter Prior Episodes: reports: no prior history Onset/Duration: reports: last night Timing: reports: still present, constant, changing over time Position/Activity at time of episode: reports: activity Symptoms prior to episode: reports: lightheaded, nausea/vomiting. denies: headache, visual disturbance, chest pain, racing heart, abdominal pain, back pain, confusion, diaphoresis, injury, recent head trauma, rapid heart beat, other Context: reports: lost consciousness, became unresponsive, collapsed. denies: confused after event, incontinent of urine, incontinent of stool, breathing shallow, breathing stopped, lost pulse, low blood sugar Loss of Consciousness: brief (seconds) Location of injury. (If syncope resulted in an injury.): reports: RLE (scraped right knee) Current Symptoms: reports: chills, nausea, weakness, lightheaded Recently Seen Here or By Another Healthcare Provider: Yes (yesterday, by Dr. Galaviz) - Dizziness Severity in ED: reports: mild Dizziness Related Current/Associated Symptoms: reports: nausea/vomiting, weakness, lightheaded, syncope Any recent trauma/injury?: reports: none Modifying Factors: improves with: nothing Patient usually:: reports: walks without assistance Review of Systems - Adult - REVIEW OF SYSTEMS - ADULT Constitutional: reports: no symptoms reported Eyes: reports: no symptoms reported Ears, Nose, Mouth & Throat: reports: no symptoms reported Cardiovascular: reports: no symptoms reported Respiratory: reports: no symptoms reported Gastrointestinal: reports: no symptoms reported Genitourinary: reports: no symptoms reported Musculoskeletal: reports: no symptoms reported Integumentary: reports: no symptoms reported Neurological: reports: no symptoms reported Psychiatric: reports: no symptoms reported Endocrine: reports: no symptoms reported Hematologic/Lymphatic: reports: no symptoms reported Allergic/Immunologic: reports: no symptoms reported All Other Systems: Reviewed and Negative Past History - Adult - PAST MEDICAL HISTORY-ADULT Review of Records: reports: Old Records Reviewed, Nursing Assessment Review, Medications Reviewed, Social history reviewed & non-contributory. Major Childhood Illnesses: reports: denies history Cardiovascular: reports: denies history Respiratory: reports: denies history Gastrointestinal: reports: denies history Obstetrical/Gynecological: reports: denies history Genitourinary: reports: denies history Musculoskeletal: reports: denies history Neurological: reports: denies history Endocrine/Immune: reports: denies history Other Conditions: reports: denies history - PRIOR SURGERIES/PROCEDURES Surgical/Procedure History: reports: cholecystectomy - IMMUNIZATION STATUS Childhood Immunizations: UTD - FAMILY HISTORY Family History: reviewed, not pertinent - SOCIAL HISTORY Smoking: non-smoker Substance Use: none/never Alcohol Use Frequency: rarely Living Situation: family Physical Exam-General - PHYSICAL EXAM-ADULT Initial Vital Signs Reviewed: Yes (VSSAF) - CONSTITUTIONAL General Appearance: appears well, alert - EYES Eyes: PERRL/EOMI, pink conjunctivae - HEAD, EARS, NOSE, MOUTH & THROAT HENMT: normocephalic/atraumatic, moist mucous membranes, normal ENT inspection, TMs normal - NECK Neck: non-tender, full range of motion, supple, normal inspection - RESPIRATORY Respiratory: chest non-tender, lungs clear, normal breath sounds, no pleuratic chest pain, no respiratory distress, no accessory muscle use - CARDIOVASCULAR Cardiovascular: normal peripheral pulses, regular rate, rhythm, no edema, no gallop, no JVD, no murmur - GASTROINTESTINAL (ABDOMEN) Abdominal Exam: normal bowel sounds, soft, no organomegaly, no pulsatile mass, tenderness (mild RUQ), other (surgical incision appears to be healing well without signs/symptoms of infection. The hole from the T-Tube is draining minimal serosanguinous fluid) - LYMPHATIC Lymphatic: no adenopathy - MUSCULOSKELETAL Back Exam: normal inspection, no CVA tenderness, no vertebral tenderness Extremity: normal range of motion, non-tender, normal gait, normal inspection, no pedal edema - SKIN Integumentary: normal color, normal turgor, warm/dry - NEUROLOGIC Neurologic: mechanical planner II-XII nml as tested, grossly normal, no motor/sensory deficits - PSYCHIATRIC Psych/Mental Status: normal mood/affect, normal thought content, normal thought process, oriented x 3 Progress - PLAN OF CARE/RESULTS Progress/Plan/Lab Results: Vital Signs - 8 hr 12/12/18 07:58 12/12/18 10:17 Temperature 97.9 F Pulse Rate 86 Pulse Rate [Sitting] 73 Pulse Rate [Standing] 100 H Pulse Rate [Supine] 74 Respiratory Rate 15 Blood Pressure 158/93 Blood Pressure [Sitting] 152/89 Blood Pressure [Standing] 150/98 Blood Pressure [Supine] 165/88 O2 Sat by Pulse Oximetry 100 Laboratory Results - last 24 hr 12/12/18 12/12/18 12/12/18 08:12 08:12 08:12 WBC 17.93 H RBC 4.30 Hgb 12.1 Hct 35.4 L MCV 82.3 MCH 28.1 MCHC 34.2 RDW Std Deviation 13.6 Plt Count 433 H MPV 9.7 Immature Gran % (Auto) 2.5 H Neut % (Auto) 76.6 H Lymph % (Auto) 13.7 L Wilkinson % (Auto) 6.0 Eos % (Auto) 0.9 Baso % (Auto) 0.3 Immature Gran # (Auto) 0.44 H Neut # (Auto) 13.75 H Lymph # (Auto) 2.45 Wilkinson # (Auto) 1.07 H Eos # (Auto) 0.17 Baso # (Auto) 0.05 PT 14.4 INR 1.03 PTT (Actin FS) 23.2 D-Dimer, Quantitative 2.36 H Specimen Type Sample Site pH pCO2 pO2 HCO3 Base Excess Oxyhemoglobin ABG O2 Sat (Calculated) ABG O2 Saturation ABG Carboxyhemoglobin ABG Methemoglobin Anurag Test A-a O2 Difference Total Hemoglobin Lactate Blood Gas Modality FiO2 % Sodium 134 L Potassium 3.0 L Chloride 91 L Carbon Dioxide 24 L Anion Gap 19 BUN 17 Creatinine 1.0 H Estimated GFR/1.73 m2 55 BUN/Creatinine Ratio 17 Glucose 167 H Calculated Osmolality 274 Calcium 10.6 H Magnesium 1.8 Total Bilirubin 1.30 H AST 22 ALT 22 Alkaline Phosphatase 89 Creatine Kinase 90 Troponin T C-Reactive Prot, Quant 17.43 H Ilj-S-Gvxuyulqbjg Pept Total Protein 7.1 Albumin 4.2 Globulin 2.9 Albumin/Globulin Ratio 1.4 Amylase 76 Lipase 92 H Plasma Lactate Urine Source Urine Color Urine Turbidity Urine pH Ur Specific Beccaria Urine Protein Ur Glucose (Stick) Ur Ketones (Stick) Urine Blood Urine Nitrite Urine Bilirubin Urobilinogen Dipstick Urine Leukocytes Urine WBC (Auto) Urine RBC (Auto) U Epithel Cells (Auto) Urine Bacteria (Auto) Acetone Level NEGATIVE 12/12/18 12/12/18 12/12/18 08:12 08:12 08:12 WBC RBC Hgb Hct MCV MCH MCHC RDW Std Deviation Plt Count MPV Immature Gran % (Auto) Neut % (Auto) Lymph % (Auto) Wilkinson % (Auto) Eos % (Auto) Baso % (Auto) Immature Gran # (Auto) Neut # (Auto) Lymph # (Auto) Wilkinson # (Auto) Eos # (Auto) Baso # (Auto) PT INR PTT (Actin FS) D-Dimer, Quantitative Specimen Type Sample Site pH pCO2 pO2 HCO3 Base Excess Oxyhemoglobin ABG O2 Sat (Calculated) ABG O2 Saturation ABG Carboxyhemoglobin ABG Methemoglobin Anurag Test A-a O2 Difference Total Hemoglobin Lactate Blood Gas Modality FiO2 % Sodium Potassium Chloride Carbon Dioxide Anion Gap BUN Creatinine Estimated GFR/1.73 m2 BUN/Creatinine Ratio Glucose Calculated Osmolality Calcium Magnesium Total Bilirubin AST ALT Alkaline Phosphatase Creatine Kinase Troponin T < 0.010 C-Reactive Prot, Quant Qxn-F-Zrdoepdtnro Pept 691 H Total Protein Albumin Globulin Albumin/Globulin Ratio Amylase Lipase Plasma Lactate 2.4 H Urine Source Urine Color Urine Turbidity Urine pH Ur Specific Beccaria Urine Protein Ur Glucose (Stick) Ur Ketones (Stick) Urine Blood Urine Nitrite Urine Bilirubin Urobilinogen Dipstick Urine Leukocytes Urine WBC (Auto) Urine RBC (Auto) U Epithel Cells (Auto) Urine Bacteria (Auto) Acetone Level 12/12/18 12/12/18 08:37 10:00 WBC RBC Hgb Hct MCV MCH MCHC RDW Std Deviation Plt Count MPV Immature Gran % (Auto) Neut % (Auto) Lymph % (Auto) Wilkinson % (Auto) Eos % (Auto) Baso % (Auto) Immature Gran # (Auto) Neut # (Auto) Lymph # (Auto) Wilkinson # (Auto) Eos # (Auto) Baso # (Auto) PT INR PTT (Actin FS) D-Dimer, Quantitative Specimen Type ARTERIAL Sample Site R RADIAL pH 7.65 H* pCO2 21 L pO2 97 HCO3 27.8 H Base Excess 3.7 H Oxyhemoglobin 96.0 ABG O2 Sat (Calculated) 15.9 ABG O2 Saturation 99.3 ABG Carboxyhemoglobin 1.80 ABG Methemoglobin 1.5 Anurag Test YES A-a O2 Difference 26.0 Total Hemoglobin 11.7 Lactate 2.40 H Blood Gas Modality ROOM AIR FiO2 % 21.0 Sodium Potassium Chloride Carbon Dioxide Anion Gap BUN Creatinine Estimated GFR/1.73 m2 BUN/Creatinine Ratio Glucose Calculated Osmolality Calcium Magnesium Total Bilirubin AST ALT Alkaline Phosphatase Creatine Kinase Troponin T C-Reactive Prot, Quant Uxr-R-Lcmlgkkoxpt Pept Total Protein Albumin Globulin Albumin/Globulin Ratio Amylase Lipase Plasma Lactate Urine Source CLEAN CATCH Urine Color YELLOW Urine Turbidity CLEAR Urine pH 6.5 Ur Specific Beccaria 1.016 Urine Protein TRACE A Ur Glucose (Stick) TRACE Ur Ketones (Stick) 10 A Urine Blood NEGATIVE Urine Nitrite NEGATIVE Urine Bilirubin NEGATIVE Urobilinogen Dipstick NORMAL Urine Leukocytes NEGATIVE Urine WBC (Auto) <10 Urine RBC (Auto) <10 U Epithel Cells (Auto) <10 Urine Bacteria (Auto) NEGATIVE Acetone Level Orders Category Date Time Status Cardiac Monitoring DIRECTED Care 12/12/18 10:57 Active ED: Orthostatic Vital Signs (E as directed Care 12/12/18 08:12 Active Finger Stick Blood Sugar (ED) DIRECTED Care 12/12/18 08:12 Active IV Insertion ORDERED Care 12/12/18 10:57 Active Notify MD of + Sepsis Screen NOW Care 12/12/18 10:57 Active Notify Physician As Ordered Care 12/12/18 10:57 Active Nursing- Obtain EKG once Care 12/12/18 08:12 Active Saline Loc NOW Care 12/12/18 08:12 Active CHEST-PORTABLE [RAD] Stat Exams 12/12/18 08:[address] ABD/PELVIS/PULM ARTERIES [CT] Stat Exams 12/12/18 08:17 Completed ABG [RESP] Routine Lab 12/12/18 10:00 Completed ACETONE SERUM [CHEM] Stat Lab 12/12/18 08:12 Completed AMYLASE [CHEM] Stat Lab 12/12/18 08:12 Completed BLOOD CULTURE [BLDCUL] Stat Lab 12/12/18 08:55 Results C REACTIVE PROT QUANT [CHEM] Stat Lab 12/12/18 08:12 Completed CBC WITH ELECTRONIC DIFF [HEME] Stat Lab 12/12/18 08:12 Completed CK PROFILE [SP CHEM] Stat Lab 12/12/18 08:12 Completed CK PROFILE [SP CHEM] Stat Lab 12/12/18 10:57 Uncollected COMPREHENSIVE METABOLIC PANEL [CHEM] Stat Lab 12/12/18 08:12 Completed D-DIMER [COAG] Stat Lab 12/12/18 08:12 Completed LACTATE, PLASMA [CHEM] Q3H Lab 12/12/18 11:00 Uncollected LACTATE, PLASMA [CHEM] Q3H Lab 12/12/18 14:00 Uncollected LACTATE, PLASMA [CHEM] Stat Lab 12/12/18 08:12 Completed LIPASE [CHEM] Stat Lab 12/12/18 08:12 Completed MAGNESIUM [CHEM] Stat Lab 12/12/18 08:12 Completed PRO B-NATRIURETIC PEPTIDE Stat Lab 12/12/18 08:12 Completed PROTIME WITH INR [COAG] Stat Lab 12/12/18 08:12 Completed PROTIME WITH INR [COAG] Stat Lab 12/12/18 10:57 Uncollected PTT [COAG] Stat Lab 12/12/18 08:12 Completed PTT [COAG] Stat Lab 12/12/18 10:57 Uncollected TROPONIN T Stat Lab 12/12/18 08:12 Completed TROPONIN T Stat Lab 12/12/18 10:57 Uncollected URINALYSIS W/POSS RFLX CULT [URINALYSIS] Stat Lab 12/12/18 08:37 Completed 0.9% Sodium Chloride Inj [Ns] 1,000 ml Med 12/12/18 08:18 Discontinued IV 999 mls/hr CefEPIME [Maxipime] 1 gm Med 12/12/18 09:25 Discontinued 0.9% Sodium Chloride Inj [Ns] 50 ml IV NOW Ondansetron [Zofran] Med 12/12/18 08:18 Discontinued 4 mg IV NOW ONE Potassium Chloride 20 Meq/Swi Med 12/12/18 09:19 Active 20 meq in 100 ml IV ONCE Vancomycin 1 gm/Ns Med 12/12/18 09:20 Discontinued 1 gm in 250 ml IV NOW Oxygen Device Stat Oth 12/12/18 10:57 Active EKG [EKG] Stat Ther 12/12/18 08:15 Draft Result Diagrams: 12/12/18 08:12 12/12/18 08:12 - REASSESSMENT Reassessment #1 Time Reassessed: 09:28 Status: improving (Although vitals are stable, with patient's complaints, leukocytosis and symptomatology, will treat as sepsis with IVF bolus and vanc/Maxepime.) - EKG 1 Time of EKG reading by physician:: 09:52 EKG Read and Signed by:: Musa Petit EKG Interpretation (*Must complete 3 of following elements*): Abnormal Rate: 71 Rhythm: NSR [place]: normal QRS: LVH, other (left hemiblock) AL Interval: normal ST Wave: non-specific ST changes - XRAY 1 XRAY Study: Chest Impression: Normal, See EMR Report (EXAM: CHEST-PORTABLE 12/12/2018 HISTORY: syncope TECHNIQUE: AP portable upright at 0824 COMMENT: The aorta is tortuous. The atelectasis seen in both lung bases on 12/06/2018 has resolved. There are no new abnormalities. IMPRESSION: No evidence of acute disease. Electronically signed by Jacobo Fernández 12/12/2018 8:30 AM 12/12/18 0830 Interpreting Physician: Jacobo Fernández MD Dictated Date/Time: 12/12/18 08 cc: Musa Petit MD; None,PCP) - CT/MRI 1 CT Study: Angiogram (CTA and abdomen/pelvis) Impression: Abnormal (EXAM: CT ABD/PELVIS/PULM ARTERIES 12/12/2018 HISTORY: syncope and SOB post-op TECHNIQUE: This exam was performed using automated exposure control, adjustment of mA or kV according to patient size, and/or use of iterative reconstruction technique. COMMENT: Thorax: There are no previous studies available for comparison. 3-D MIPS were performed. There are no filling defects in the pulmonary arteries. The thoracic aorta is not distended and there is no evidence of dissection. There is patchy emphysematous change in both lungs. There are some nonspecific nodes in the right paratracheal region. None of these exceed a centimeter in size. There are no abnormal fluid collections. There is no evidence of acute pulmonary parenchymal disease otherwise. There is spondylosis in the thoracic spine. No acute bony abnormalities are present. ABDOMEN: The current examination is compared to the previous study of 11/10/2018. There has been cholecystectomy. There are postsurgical changes of gastric bypass. There has been cholecystectomy. There is apparent seroma or hematoma formation in the gallbladder fossa. There is stranding in the peritoneal and retroperitoneal fat adjacent to the gallbladder fossa and extending into the anterior abdominal wall on the right, presumably also postsurgical in origin. There are still surgical skin clips. There are number of small cysts present in the kidneys. There is no evidence of hydronephrosis. The abdominal aorta is not distended. The pancreas is unremarkable in appearance. The adrenal glands are not enlarged. The spleen is not enlarged. There is no evidence of bowel obstruction. Pelvis: The appendix is surgically absent. There is a calcified leiomyoma in the uterus. There may be multiple follicles in both ovaries. There is no evidence of free fluid. There is some gas in the urinary bladder which may be due to recent instrumentation. There is vacuum joint phenomenon in the sacroiliac joints and degenerative disc disease with vacuum disc phenomenon at L5-S1. There is bilateral vacuum joint phenomenon in the facets at L4-5. No acute bony abnormalities are present. IMPRESSION: Postsurgical changes. No evidence of pulmonary emboli. COPD. Other nonacute findings as described above. Electronically signed by Jacobo Fernández 12/12/2018 10:19 AM 12/12/18 1019 Interpreting Physician: Jacobo Fernández MD Dictated Date/Time: 12/12/18 7417 cc: Musa Petit MD; None,PCP), See EMR Report - CONSULTS/PCP/HOSPITALIST Notification #1 *Consult/PCP/Hospitalist*: Dr. Galaviz, PCP, paged at [phone] Time Discussed: 09:45 Consult Disposition: other (In the OR, call confectionery drops machine operator surgeon if needed.) #2 Consult: Dr. Galaviz PCP, paged at [phone] Time Discussed: 10:48 (Raya is confectionery drops machine operator and also in OR) Reason/Comments: Spoke with Franchesca, admit to hospitalist, he will consult Consult Disposition: other (APPRAISAL MANAGER will get the message to one of the surgeons and get back to me.) #3 Consult: RANDI Robison hospitalist paged at [phone] Time Discussed: 11:02 (admit to [facility]) Consult Disposition: Admit Departure - Departure Date of Disposition Decision: 12/12/18 Time of Disposition Decision: 11:03 DIAGNOSIS: Syncope and collapse, Post-operative state Sepsis Qualifiers: Sepsis type: sepsis due to unspecified organism Qualified Code(s): A41.9 - Sepsis, unspecified organism Disposition: ADMITTED INPATIENT 09 Certified Medical Emergency: Emergent Condition: Fair Referrals and Follow-Ups: None,PCP [Primary Care Provider] - - Critical Care Note This patient required my direct & personal management of CC.: Yes Total Time (mins): 40 (multiple calls to physicians, treatment of sepsis) Critical Care Statement: This patient required my direct personal management to treat or rule out processes, the absence of which, could potentiallly result in sudden, clinically significant life or limb threatening deterioration. Attestation - Physician/ NASIM Attestation Patient care was provided by Advanced Practice Provider:: No The physician spent face to face time with patient:: Yes Advanced Practice Provider documentation review:: Supervising physician onsite and consulted in the evaluation and care of this patient. The physician did have a face to face encounter with the patient.
[2018-12-12 08:54] LABS: BILIRUBIN URINE NEGATIVE (NEGATIVE); BLOOD URINE NEGATIVE (NEGATIVE); COLOR YELLOW; GLUCOSE URINE TRACE mg/dL (NEGATIVE); KETONE URINE 10 mg/dL (NEGATIVE); LEUKOCYTES URINE NEGATIVE (NEGATIVE); NITRITE URINE NEGATIVE (NEGATIVE); PH URINE 6.5; PROTEIN URINE TRACE mg/dL (NEGATIVE); SP GRAVITY URINE 1.016; TURBIDITY URINE CLEAR (CLEAR); UROBILINOGEN URINE NORMAL (NORMAL)
[2018-12-12 08:55] LABS: UR EPITHELIAL CELLS <10 /HPF (<10); URINE BACTERIA NEGATIVE /HPF; URINE RBC <10 /HPF (<10); URINE WBC <10 /HPF (<10)
[2018-12-12 08:56] LABS: D-DIMER 2.36 ug/mLFEU (0.0-0.52)
[2018-12-12 08:57] LABS: ACETONE SERUM NEGATIVE (NEGATIVE)
[2018-12-12 09:05] LABS: AGAP 19; ALB/GLOB RATIO 1.4; ALBUMIN 4.2 g/dL (3.5-5.0); ALKALINE PHOSPHATASE 89 U/L (32-104); AMYLASE 76 U/L (20-200); BUN 17 mg/dL (8-22); C REACTIVE PROT QUANT 17.43 mg/L (0.00-5.00); CALCIUM 10.6 mg/dL (8.8-10.2); CHLORIDE 91 mmol/L (98-107); CK PROFILE 90 U/L (24-173); COSMO 274; ESTIMATED GFR 55; GLUCOSE 167 mg/dL (70-104); GOT 22 U/L (10-30); GPT 22 U/L (10-36); LIPASE 92 U/L (13-60); MAGNESIUM 1.8 mg/dL (1.5-2.7); SODIUM 134 mmol/L (136-145); TCO2 24 mmol/L (25-35); TOTAL PROTEIN 7.1 g/dL (6.3-8.3)
[2018-12-12] MEDS ORDERED: POTASSIUM CHLORIDE 20 MEQ/SWI 20 MEQ/100 ML IVPB IV ONE (09:19)
[2018-12-12] MEDS ORDERED: VANCOMYCIN 1 GM/NS 1 GM/250 ML IVPB IV ONE (09:20)
[2018-12-12] MEDS ORDERED: MAXIPIME 1 GM in NS 50 ML IV ONE (09:25)
[2018-12-12 10:12] LABS: BLOOD TYPE ARTERIAL; SAMPLE BLOOD
[2018-12-12 10:13] LABS: ALLEN TEST YES; BE 3.7 mmoll (-3.0-3.0); HCO3-(ACT) 27.8 mmoll (20.0-26.0); METHB 1.5 % (0.0-1.5); MODALITY ROOM AIR; O2(CT) 15.9 mL/dL (15.0-23.0); PCO2(98.6) 21 mmHg (35-45); PO2(98.6) 97 mmHg (60-100); SAO2 99.3 % (95.0-100.0); THB 11.7 g/dL (11.5-17.4)
[2018-12-12 10:16] LABS: pH(98.6) 7.65 (7.35-7.45)
--- NOTE | 2018-12-12 10:22 | Diag Imaging Result Doc PS360 ---
EXAM: CT ABD/PELVIS/PULM ARTERIES 12/12/2018 HISTORY: syncope and SOB post-op TECHNIQUE: This exam was performed using automated exposure control, adjustment of mA or kV according to patient size, and/or use of iterative reconstruction technique. COMMENT: Thorax: There are no previous studies available for comparison. 3-D MIPS were performed. There are no filling defects in the pulmonary arteries. The thoracic aorta is not distended and there is no evidence of dissection. There is patchy emphysematous change in both lungs. There are some nonspecific nodes in the right paratracheal region. None of these exceed a centimeter in size. There are no abnormal fluid collections. There is no evidence of acute pulmonary parenchymal disease otherwise. There is spondylosis in the thoracic spine. No acute bony abnormalities are present. ABDOMEN: The current examination is compared to the previous study of 11/10/2018. There has been cholecystectomy. There are postsurgical changes of gastric bypass. There has been cholecystectomy. There is apparent seroma or hematoma formation in the gallbladder fossa. There is stranding in the peritoneal and retroperitoneal fat adjacent to the gallbladder fossa and extending into the anterior abdominal wall on the right, presumably also postsurgical in origin. There are still surgical skin clips. There are number of small cysts present in the kidneys. There is no evidence of hydronephrosis. The abdominal aorta is not distended. The pancreas is unremarkable in appearance. The adrenal glands are not enlarged. The spleen is not enlarged. There is no evidence of bowel obstruction. Pelvis: The appendix is surgically absent. There is a calcified leiomyoma in the uterus. There may be multiple follicles in both ovaries. There is no evidence of free fluid. There is some gas in the urinary bladder which may be due to recent instrumentation. There is vacuum joint phenomenon in the sacroiliac joints and degenerative disc disease with vacuum disc phenomenon at L5-S1. There is bilateral vacuum joint phenomenon in the facets at L4-5. No acute bony abnormalities are present. IMPRESSION: Postsurgical changes. No evidence of pulmonary emboli. COPD. Other nonacute findings as described above. Electronically signed by Jacobo Fernández 12/12/2018 10:19 AM
--- NOTE | 2018-12-12 10:29 | EKG Report ---
Test Performed on : 12/12/2018 09:46:03 AM Test Reason : syncope Blood Pressure : / mmHG Vent. Rate : 071 BPM Atrial Rate : 071 BPM P-R Int : 176 ms QRS Dur : 116 ms QT Int : 434 ms P-R-T Axes : 042 -50 107 degrees QTc Int : 471 ms Normal sinus rhythm. Left anterior fascicular block Left ventricular hypertrophy with QRS widening T wave abnormality, consider lateral ischemia Prolonged QT Abnormal ECG When compared with ECG of 07-DEC-2018 07:09, T wave inversion now evident in Lateral leads Unconfirmed Result
[2018-12-12] MEDS ORDERED: VANCOMYCIN IV PER PHARMACY MISC SCH (13:19)
[2018-12-12] MEDS ORDERED: ZOFRAN IV PRN (13:19)
[2018-12-12] MEDS ORDERED: ULTRAM PO PRN (13:19)
[2018-12-12] MEDS ORDERED: TYLENOL PO PRN (13:19)
[2018-12-12] MEDS: NS 1,000 ML IV SCH ×2 (14:28→14:32)
--- NOTE | 2018-12-12 14:33 | Diag Imaging Result Doc PS360 ---
EXAM: CT HEAD W/O CONTRAST 12/12/2018 HISTORY: Syncope TECHNIQUE: This exam was performed using automated exposure control, adjustment of mA or kV according to patient size, and/or use of iterative reconstruction technique. COMMENT: There is no evidence of mass effect, bleed, or abnormal extra-axial fluid collection. The visualized paranasal sinuses are clear. 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 IMPRESSION: No evidence of acute intracranial disease. Electronically signed by Jacobo Fernández 12/12/2018 2:31 PM
--- NOTE | 2018-12-12 14:34 | GENERAL SURGERY CONSULTATION ---
DATE: 12/12/2018 REQUESTING PHYSICIAN: ER. REASON FOR CONSULTATION: Consult concerning postoperative state. HISTORY OF PRESENT ILLNESS: A 68-year-old female well known to me, who I had previously done an open cholecystectomy for gangrenous suppurative cholecystitis a week ago. She had been seen in the hospital. Her postoperative course initially had some complication with bradycardia but she improved. She had had a full cardiac workup. She was sent home. I had even seen her in the office yesterday and removed her drain, and developed a syncopal episode. She came to the emergency department. Upon evaluation in the emergency department, she had been hemodynamically stable but she had a leukocytosis up to 17 and a lactic acid of 2.4. She was seen in the emergency department and had a CT scan that showed postsurgical changes but no real other acute pathology. She is being admitted by the Hospitalist service currently. PAST MEDICAL HISTORY: Recent cholecystectomy. PAST SURGICAL HISTORY: 1. Recent cholecystectomy. 2. Appendectomy. 3. Tonsillectomy and adenoidectomy. ALLERGIES: Penicillin. HOME MEDICATIONS: She was on: 1. Cipro. 2. Flagyl. FAMILY HISTORY: Reviewed with patient and noncontributory. REVIEW OF SYSTEMS: Full 10-point review of systems obtained and negative except as specified in the HPI. PHYSICAL EXAMINATION: Vital signs: The patient is currently afebrile. Her vital signs are stable. General Exam: No acute distress. HEENT: Normocephalic, atraumatic. Pupils equal, round, and reactive to light. Mucous membranes moist. Oropharynx benign. Neck: Supple. Trachea midline. Cardiovascular: Regular rate and rhythm. Lungs: Grossly clear. Abdomen: Soft. No real tenderness at this time. Incision is healing well. Extremities: Moves all extremities. Neurologic: Grossly intact. Skin: No signs of jaundice. Vascular: All extremities perfuse. LABORATORY: Reviewed and noted above. IMAGING: Reviewed and noted above. ASSESSMENT AND PLAN: A 68-year-old female with syncopal episode in the postoperative state. 1. Syncopal episode. At this time, we will get the Hospitalist to admit her. We will get the Hospitalist to do a workup. Unsure if she is having any immediate complications from her surgery, but given her fact that she had bradycardia, she may consider something like a Holter monitor and carotid ultrasound and maybe even a CT scan of her head but again will defer to the Hospitalist. 2. Postoperative state. At this time, the abdomen does not appear to be hostile. She does not appear to have any major abscesses or fluid collections that need to be drained. Will put her on IV antibiotics to protect her. cc: Matteo Galaviz MD
--- NOTE | 2018-12-12 15:04 | HISTORY AND PHYSICAL ---
PRIMARY CARE PHYSICIAN: Listed as none. CHIEF COMPLAINT: A syncopal episode this morning after returning from the bathroom. HISTORY OF PRESENTING ILLNESS: This is a 68-year-old, female who is 1 week postop an open cholecystectomy. Saw her surgeon, Dr. Galaviz, yesterday and had her drain tube filled. This morning, during the early hours of the morning, she got up to go to the bathroom. [place] weak and lightheaded. Had some chills and nausea. States when she was returning back from the bathroom, she passed out onto the floor, so she came to the emergency room for evaluation. Was found to have a white blood cell count of 17.93, a D-dimer of 2.36. We did do a CT of the pulmonary arteries that showed no evidence of pulmonary emboli. We also did a CT of the abdomen and pelvis that showed the postsurgical changes but no other nonacute findings were found. She will be admitted for further evaluation and treatment. PAST MEDICAL HISTORY: Diabetes and hypertension. PAST SURGICAL HISTORY: Open cholecystectomy 1 week ago and an appendectomy. FAMILY HISTORY: Reviewed and noncontributory. SOCIAL HISTORY: She currently lives with family. Denies any tobacco, alcohol, or illicit drug use. ALLERGIES: To penicillin. HOME MEDICATIONS: Norvasc 5 mg p.o. daily, Pepcid 20 mg p.o. daily, Ultram 50 mg p.o. q.6 hours p.r.n. We will hold her Levaquin 750 mg p.o. daily and Flagyl 500 mg p.o. t.i.d. LABORATORY DATA: Showed a white blood cell count of 17.93, hemoglobin of 12.1, hematocrit 35.4, platelets 433,000. PT and INR of 14.4 and 1.03, with a D-dimer of 2.36. ABG showed a pH of 7.65, pCO2 of 21, PO2 of 97, bicarb 27.8, and this was on room air. Sodium of 134, potassium of 3, chloride 91, CO2 of 24, BUN of 17, creatinine 1, glucose 167, magnesium 1.8. Total bilirubin of 1.30. Cardiac enzymes were negative. C-reactive protein of 17.43. ProBNP of 691. Amylase 76, lipase 92. Plasma lactate of 2.4. Urinalysis was negative. Acetone was negative. Chest x-ray showed no evidence of acute disease. EKG with normal sinus rhythm at 71. CT of the abdomen, pelvis, and pulmonary arteries showed the postsurgical changes and no evidence of a pulmonary emboli and COPD. REVIEW OF SYSTEMS: She denied any fever. She was positive for chills, weakness, lightheadedness. Denied any chest pain, coughing, shortness of breath. Denied any abdominal pain, constipation, diarrhea. She was nauseated and had a syncopal episode. Denies any burning or hurting with urination. PHYSICAL EXAMINATION: VITAL SIGNS: On arrival, she had a temperature of 97.9 degrees, pulse 86, respirations 15, blood pressure 158/93, saturating 100% on room air. Orthostatic vitals were all within normal limits with a lying of 165/88, pulse 74; sitting 152/89 with a pulse of 73; standing 150/98, pulse of 100. GENERAL: This is a 68-year-old, female who is lying in the bed and answers questions appropriately. HEENT: Normocephalic, atraumatic. Normal ENT inspection. Oropharynx and nares are clear. Eyes: Pupils are equal, round, and reactive to light and accommodation. Extraocular movements are intact. NECK: Normal inspection. Normal range of motion. LUNGS: Clear to auscultation bilaterally with equal lung expansion and chest wall movement. HEART: With regular rate and rhythm. No murmurs, rubs, or gallops. ABDOMEN: Soft. There is some tenderness to palpation that is mild in that right upper quadrant. Surgical incision appears to be healing without any signs or symptoms of infection. Bowel sounds were present x4 quadrants. MUSCULOSKELETAL: She has 5/5 strength x4 extremities. NEUROLOGICAL: The cranial nerves 2-12 appear grossly intact. ASSESSMENT: 1. Syncope. 2. Leukocytosis, most likely secondary to being status post open cholecystectomy 1 week ago. 3. Elevated D-dimer, ruled out for pulmonary embolism. 4. Hypokalemia. PLAN: She is being admitted to the medical unit, placed on telemetry. Placed on a healthy heart diet. We will consult general surgery. Apply SCDs for DVT prophylaxis. We will do a CT of her head without contrast today. Carotid Dopplers bilateral today. We will place her on cefepime 1 g IV q.12 and vancomycin per pharmacy protocol, Zofran 4 mg IV q.4 hours p.r.n. We will recheck a CBC and a CMP in the a.m. It is noted that she had an echocardiogram done on 12/06/2018 that showed an ejection fraction of 66% with normal left ventricular function so we will not repeat that at this time. Dictated by RANDI Washington for Anurag Hess MD cc: RANDI Washington MD
[2018-12-12] MEDS ORDERED: VANCOMYCIN 1,650 MG in NS 250 ML IV ONE (15:30)
[2018-12-12] MEDS: MAXIPIME 1 GM in NS 50 ML IV SCH (20:43)
[2018-12-13] MEDS: NS 1,000 ML IV SCH (03:47)
[2018-12-13 07:12] LABS: BASO# 0.06 X1000 (0.0-0.2); BASO% 0.4 % (0.0-0.8); EOS% 5.3 % (0.0-10.0); HEMOGLOBIN 9.9 g/dL (12.0-16.0); IMM GRAN# 0.56 X1000 (0.0-0.04); IMM GRAN% 3.3 % (0.0-0.5); LYMPH# 3.25 X1000 (1.2-3.4); LYMPH% 19.3 % (20.5-51.1); MCH 28.4 PG (27-31); MONO% 7.1 % (1.7-9.3); MPV 9.7 FL (7.4-10.4); NEUT# 10.89 X1000 (1.4-6.5); NEUT% 64.6 % (42.2-75.2); PLT 334 X1000 (130-400); RBC 3.49 XMIL (4.2-5.4); RDW 14.5 % (11.5-14.5); WBC 16.86 X1000 (4.8-10.8)
[2018-12-13 07:22] LABS: ALB/GLOB RATIO 1.3; ALBUMIN 3.3 g/dL (3.5-5.0); CALCIUM 8.6 mg/dL (8.8-10.2); POTASSIUM 3.6 mmol/L (3.5-5.1); TOTAL BILIRUBIN 0.56 mg/dL (0.20-1.00); TOTAL PROTEIN 5.9 g/dL (6.3-8.3)
[2018-12-13 07:43] VITALS: BP 158/75
--- NOTE | 2018-12-13 08:17 | GENERAL SURGERY PROGRESS NOTE ---
DATE: 12/13/2018 SUBJECTIVE: Patient seems to be doing okay. She does not have any abdominal pain. Her CT scan of her head was essentially negative. She has got carotid ultrasounds pending. OBJECTIVE: Vital Signs: The patient is currently afebrile. Her vital signs are stable. General: No acute distress. Cardiovascular: Regular rate and rhythm. Lungs: Grossly clear. Abdomen: Soft, appropriately tender. ASSESSMENT AND PLAN: A 68-year-old female status post open cholecystectomy with a syncopal episode. 1. Syncopal episode. At this time, workup is still underway. She is doing okay right now. She has not had a fever. Her lactic acid has trended to normal. Her other labs appear to be okay. Will defer to the hospitalist. 2. Status post open cholecystectomy. At this time, patient does have leukocytosis. Will keep her on antibiotics. She did have a suppurative cholecystitis which puts her at risk for intra- abdominal abscess, although her CT scan was not that impressive for intra-abdominal abscess. Will continue supportive care. cc: Matteo Galaviz MD
[2018-12-13] MEDS ORDERED: NORVASC PO SCH (09:00)
[2018-12-13] MEDS ORDERED: PEPCID PO SCH (09:00)
[2018-12-13] MEDS: MAXIPIME 1 GM in NS 50 ML IV SCH (09:11)
--- NOTE | 2018-12-13 09:56 | DISCHARGE SUMMARY ---
ADMISSION DATE: 12/12/2018 DISCHARGE DATE: 12/13/2018 She has no primary care physician. She had a syncopal episode the morning of 12/12/2018. A 68- year-old female was 1 week postop open cholecystectomy, had a gangrenous gallbladder. Dr. Galaviz did it. It was a fairly big surgery. Stayed several days. Tube was pulled in the clinic the morning of 12/11/2018. During the full stack java developer of 12/12/2018, she got up to go to the bathroom, felt weak and lightheaded, chills, and nausea. She was returning back from the bathroom, passed out on the floor, went back to bed, did not want to come to the emergency room, family talked her into it. Her white count was 17,930. D-dimer 2.36. CT pulmonary arteries showed no evidence of pulmonary emboli. She also had a CT of the abdomen and pelvis, which showed postsurgical changes and no other acute findings found. She has a past history of diabetes mellitus and hypertension, and the really only surgical history is the open cholecystectomy she had a week ago. Admission diagnosis is syncope. She had some leukocytosis, but did not see really any sign of infection. There was a question of possible sepsis, but really did not see any evidence for infection to suspect it was more vasovagal syncope. Her blood pressure stayed between 158 and 160/74 to 93. Her pulse was in the 80s. She felt good, and was able to tolerate regular food. White count was 17,930. The following day, it was 16,860. Platelet count 334,000. Hematocrit was 30. Her electrolytes on presentation showed creatinine 1.0. No sign of acidosis. Calcium 8.6, albumin 3.3. I felt she could go home. At discharge, will have her on Norvasc 5 mg a day. She got a dose of cefepime, and will stop that. Pepcid 20 mg daily, and she got a dose of vancomycin. She had tramadol p.r.n. pain, 50 mg every 6 hours. Her home medications, they had had her on Levaquin 750 mg, and Flagyl, which I will have her resume when she gets home. She was taking Pepcid 20 mg a day, and then she had the Ultram at home as well, so her medications will be Norvasc 5 mg a day, Pepcid 20 mg a day, finish her Levaquin 750 mg p.o. daily for a total of 8 tablets, and Flagyl 500 mg p.o. t.i.d. (she had 24 of those), and then she has the Ultram 50 mg every 6 hours p.r.n. She will follow up with Dr. Galaviz in a couple of weeks. cc: Anurag Hess MD
[2018-12-13] MEDS ORDERED: VANCOMYCIN 1,200 MG in NS 250 ML IV SCH (15:00)
--- NOTE | 2018-12-15 17:27 | Carotid Study ---
DATE: 12/12/2018 PROCEDURE: Carotid duplex imaging. REFERRING PHYSICIAN: Dr. Anurag Hess. INTERPRETING PHYSICIAN: Rigo Dos Santos MD. TECH: [place]. INDICATIONS: Syncope. FINDINGS: There are no significant atherosclerotic changes noted in the bilateral carotid artery system. There are antegrade vertebrals. cc: MD Enriqueta Shah CRNP
== END 2018-12-13 11:11 | disposition home or self-care (01) | DRG 312 ==
LOC: ED 07:54 → 4N 12:18
PROVIDERS: ATTEND Emergency Medicine
CPT/HCPCS: 70450; 71010; 71045; 71275; 74177; 80053; 81001; 82009; 82150; 82550; 82805; 83605; 83690; 83735; 83880; 84484; 85025; 85379; 85610; 85730; 86140; 87040; 93005; 93880; A9270; J0692; J2405; J3370; J3480; J7030; J7050; Q9967